=== PATIENT | female | born 1930 | race Caucasian/White ===

== ENCOUNTER → 2017-03-12 | Outpatient (CLI) | payer OTHER, BC ==
--- NOTE | 2017-03-12 15:45 | MAMMOGRAPHY REPORT ---
BILATERAL DIGITAL SCREENING MAMMOGRAM WITH CAD: 03/12/2017 CLINICAL HISTORY: Routine screening. Patient has no complaints. TECHNIQUE: Bilateral CC and MLO views were obtained. Current study was also evaluated with a Compute r Aided Detection (CAD) system. COMPARISON: Comparison is made to exams dated: 02/04/2015 mammogram, 03/25/2013 mammogram, 01/11/2011 ammogram - [facility], 09/16/2008, and 05/13/2007. BREAST COMPOSITION: The tissue of both breasts is almost entirely fatty. FINDINGS: There are benign calcifications in both breasts. No suspicious mass, architectural distor tion or cluster of microcalcifications is seen. IMPRESSION: ACR BI-RADS CATEGORY 2: BENIGN There is no mammographic evidence of malignancy. A 1 year screening mammogram is recommended. The pa tient will receive written notification of the results. Approximately 10% of breast cancers are not detected with mammography. A negative mammographic report should not delay biopsy if a clinically suggestive mass is present. Crystal Rice M.D. ay/:03/12/2017 14:56:03 Pre Assembly Wirer: Katy MONTIEL(Clarence)(M), [facility] letter sent: Normal 1/2 BI-RADS Code: ACR BI-RADS Category 2: Benign
== END | disposition home or self-care (01) ==
LOC: C.MAMM 14:01
PROVIDERS: ATTEND Family Medicine
DX: Z12.31 Encounter for screening mammogram for malignant neoplasm of breast (principal)

== ENCOUNTER → 2017-04-15 | Outpatient (CLI) | payer OTHER, BC ==
[2017-04-15 14:02] LABS: BLOOD UREA NITROGEN 15 mg/dl (7-18); BUN/CREATININE RATIO 15.7 (10-20); CALCIUM 8.9 mg/dl (8.5-10.1); CARBON DIOXIDE 28 mmol/L (21-32); CHLORIDE 105 mmol/L (98-107); CREATININE 0.94 mg/dl (0.60-1.20); GLUCOSE 93 mg/dl (70-99); SODIUM 142 mmol/L (136-145)
[2017-04-15 14:16] LABS: CHOLESTEROL 193 mg/dl (0-200); CHOLESTEROL/HDL RATIO 3.4; HDL CHOLESTEROL 57 mg/dl; LDL CHOLESTEROL CALCULATED 117 mg/dl; TRIGLYCERIDES 93 mg/dl (0-150); VERY LOW DENSITY LIPOPROT CALC 19 mg/dl
== END | disposition home or self-care (01) ==
LOC: C.LABBC 09:07
PROVIDERS: ATTEND Family Medicine
DX: E03.9 Hypothyroidism, unspecified (principal); Z13.220 Encounter for screening for lipoid disorders; I47.2 Ventricular tachycardia; M81.0 Age-related osteoporosis without current pathological fracture; I49.3 Ventricular premature depolarization

== ENCOUNTER 2017-09-17 19:27 | Emergency (ER) | payer OTHER, BC ==
[~2017-09-17] VITALS: Ht 165.1 cm; Wt 60.9 kg
[2017-09-17 19:42] VITALS: TEMP 36.6; Ht 165.1 cm; Wt 60.9 kg
[2017-09-17] MEDS ORDERED: XYLOCAINE 1%/SOD BICARB 20 ML VIAL INFIL ONE (20:15)
--- NOTE | 2017-09-17 20:45 | EMERGENCY ROOM VISIT NOTE ---
ED Visit Note First contact with patient: 19:46 This Patient was discussed with the physician surgery assistant, Preston Pereira PA-C. The pertinent historical and physical exam findings were confirmed. I agree with the studies ordered and with the interpretations of these studies. I agree with the disposition and care plan.
[2017-09-17] MEDS ORDERED: CEPH500C2 PO (21:05)
[2017-09-17 22:01] VITALS: BP 130/54; PULSE 73; O2SAT 97
--- NOTE | 2017-09-18 01:53 | EMERGENCY ROOM VISIT NOTE ---
ED Visit Note First contact with patient: 19:46 Chief Complaint: I cut my left thumb. History of Present Illness: Ms. Hawkins is an 86-year-old white female who ambulates into the ED accompanied by female friend complaining of a laceration to the left thumb. 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 She was seen at an urgent care center and was referred to the ED for a possible tendon injury. Currently patient reports she has an achy and stinging sensation in the area of her laceration at the level of the left first MCP joint. She rates her discomfort 5/10. Her pain is nonradiating. Her pain worsens with palpation of the laceration. She has not identified any alleviating factors related to the pain. She has not taken any medications for pain prior to arrival at the hospital. She reports after the injury her bleeding was easily controlled but she did not wash her wound. She denies any associated symptoms with her wound including other hand pain, other finger pain, thumb weakness/numbness/tingling. Review of Systems: As noted above in history of present illness. Past Medical History: Patient denies. Current Medications: Patient denies. Allergies to Medications: Patient denies. Social History: Patient feels safe in her home environment; she denies tobacco use. Tetanus Immunization Status: Patient reports up-to-date. Physical Examination: Vital Signs: Date Time Temp Pulse Resp B/P (MAP) Pulse Ox O2 Delivery O2 Flow Rate FiO2 09/17/17 22:01 73 18 130/54 97 Room Air 09/17/17 19:42 36.6 89 18 147/73 96 Room Air GENERAL: 86-year-old female in no acute distress, nontoxic-appearing, afebrile and hemodynamically stable. NEUROLOGICAL: Awake, alert and oriented to person, place and time. Answering questions appropriately and following commands. SKIN: Warm, dry and pink. Left Hand: 2.5 cm full-thickness laceration over the palmar aspect of the first MCP joint. No active bleeding. LEFT UPPER EXTREMITY : No gross bony deformity. Soft tissue injury as noted above. No bony tenderness throughout the thumb or the hand. 5/5 muscle strength in flexion, extension and abduction and abduction of the thumb at the MCP joint and flexion and extension of the interphalangeal joint of the thumb. She was able to oppose her thumb with all fingers without difficulty. Throughout the thumb the skin was warm and pink and capillary refill was brisk. She was able to distinguish light sensations through all dermatomes. There was exposure to the tendons of the abductor pollicis muscles. There was no visible injuries to the tendons. ED Course: Patient is assessed as noted above. Patient's medication list was reviewed. Wound Repair: Complexity: Basic Verbal consent was obtained after the risks and benefits were explained. The skin was prepped with betadine and a sterile field set. Wound edges of the wound was anesthetized with 2.8 ml buffered 1% lidocaine. The wound was explored for foreign bodies and none found. Copious irrigation was performed using sterile saline. With direct pressure the bleeding subsided. Debridement was not performed. The wound edges were loosely approximated using 5-0 Ethilon with 5 simple interrupted sutures. Hemostasis and excellent approximation was achieved. Antibacterial ointment and a sterile dressing applied. Patient's thumb was placed in a thumb spica splint. No complications and the patient tolerated the procedure well. Patient's case was reviewed with Dr. Westfall; he independently assessed the patient we agreed on diagnostic approach, treatment, disposition and plan. Patient was educated about tonight's findings and instructed on her treatment plan; she verbalizes understanding and agreement with this plan. Clinical Impression: Laceration of the left thumb. Abductor tendon exposure of the left thumb. Disposition: Patient discharged home in stable condition; prior to departure he was reassessed and subjectively reported she was pain-free. Plan: Comfort measures, wound care, and signs of infection were discussed with the patient. Patient was prescribed Keflex 500 mg 4 times a day for 7 days. Patient was encouraged to follow-up with Dr. Lyons, orthopedic hand specialist, for definitive care and treatment. Patient was encouraged return the ED for any signs of infection or any new/ concerning symptoms.
== END 2017-09-17 22:16 | disposition home or self-care (01) ==
LOC: C.EDB 19:28 → C.EDD 22:16
DX: S61.012A Laceration without foreign body of left thumb without damage to nail, initial encounter (principal); W26.8XXA Contact with other sharp object(s), not elsewhere classified, initial encounter